=== PATIENT | female | born 1995 | race African-American/Black ===

== ENCOUNTER 2020-11-28 14:11 | Emergency (ER) | payer OTHER, SELFPAY ==
--- NOTE | ~2020-11-28 | XR_ITS ---
EXAMINATION: XR chest 2V 11/28/2020 15:07 INDICATION: Left-sided chest pain for 3 days PROCEDURE: 2 views of the chest COMPARISON: No prior studies for comparison. FINDINGS: The lungs are clear. The cardiomediastinal silhouette is within normal limits. There are no pleural effusions. There is no pneumothorax suspected. IMPRESSION: 1: NO ACUTE CARDIOPULMONARY DISEASE. Reviewed, dictated and finalized at location A. L APPLIANCE ASSEMBLY SUPERVISOR
--- NOTE | 2020-11-28 14:13 | ECG_ITS ---
Measurements Intervals [place] Rate: 85 P: 21 KS: 173 QRS: 44 QRSD: 89 T: 7 QT: 354 QTc: 423 Interpretive Statements SINUS RHYTHM BORDERLINE T WAVE ABNORMALITY- INFERIOR LEADS BORDERLINE ECG Electronically Signed On 11-28-2020 14:55:30 NURSING ASSISTANTS TEACHER by Salomon Rivera D.O.
[2020-11-28 14:17] VITALS: BP 126/90; PULSE 79; RESP 18; TEMP 36.3; O2SAT 100
[2020-11-28 14:46] LABS: Basophils Absolute Auto 0.1 K/mm3 (0.0-0.1); Eosinophils Absolute Auto 0.2 K/mm3 (0-0.3); Eosinophils Percent Auto 2.3 % (0-4.4); Hematocrit 42.5 % (37.0-47.0); Immature Granulocyte Absolute 0.02 K/mm3 (0.00-0.031); Immature Granulocyte Percent A 0.3 % (0-0.5); Mean Corpuscular HGB Conc 32.9 g/dl (32-36); Mean Corpuscular Hemoglobin 29.2 pg (26-34); Mean Corpuscular Volume 88.7 fl (80-100); Mean Platelet Volume 10.3 fl (7.4-10.4); Monocytes Absolute Auto 0.5 K/mm3 (0.1-0.6); Monocytes Percent Auto 7.5 % (2.6-8.5); Neutrophils Absolute Auto 3.3 K/mm3 (1.3-6.7); Neutrophils Percent Auto 47.9 % (45.5-73.1); Platelet Count Result 328 k/mm3 (150-375); Red Blood Count 4.79 M/mm3 (4.2-5.4); Red Cell Distribution Width 12.2 % (11.5-14.5); White Blood Count 6.8 K/mm3 (4.5-10.0)
[2020-11-28 14:55] LABS: Prothrombin Time 13.4 Seconds (11.1-14.7)
[2020-11-28 14:56] LABS: Partial Thromboplastin Time 29.4 SECONDS (22.3-36.8)
[2020-11-28 14:58] LABS: Anion Gap 6 mmol/L (8-16); Blood Urea Nitrogen 11 mg/dL (7-17); Calcium 9.6 mg/dL (8.4-10.2); Carbon Dioxide 30 mmol/L (22-30); Chloride 103 mmol/L (98-107); Estimated CRCL calculation 119 ml/min; Estimated Glomerular Filt Rate > 60; Glucose 99 mg/dL (65-105); Potassium 4.3 mmol/L (3.4-5.0); Sodium 139 mmol/L (137-145)
[2020-11-28 15:10] LABS: Troponin I < 0.012 ng/mL (0.000-0.034)
[2020-11-28] MEDS: ASPIRIN 81 MG CHEWABLE TABLET 324 MG PO (15:28)
[2020-11-28 15:29] VITALS: PULSE 75
[2020-11-28 15:44] LABS: D Dimer 0.59 ug/mL (<0.48)
[2020-11-28 16:31] VITALS: BP 117/83; PULSE 81; RESP 18; O2SAT 98
[2020-11-28 16:46] VITALS: BP 125/86; PULSE 74; RESP 13; O2SAT 98
[2020-11-28 17:16] VITALS: BP 117/81; PULSE 80; RESP 9; O2SAT 97
[2020-11-28 17:31] VITALS: BP 117/88; PULSE 83; RESP 16; O2SAT 98
--- NOTE | 2020-11-28 18:09 | PC.NURSE ---
Pt IV blew in CT. unable to proceed with CT at this time
[2020-11-28 18:19] LABS: Troponin I < 0.012 ng/mL (0.000-0.034)
--- NOTE | 2020-11-28 18:21 | PC.NURSE ---
Pt states she doesn't want to be stuck anymore and wants to go home
--- NOTE | 2020-11-28 21:32 | ED.GENADULT ---
HPI - General Adult General Chief complaint: Chest Pain Stated complaint: CHEST PAIN X3D Time Seen by Provider: 11/28/20 15:19 Source: patient Mode of arrival: ambulatory Limitations: no limitations History of Present Illness HPI narrative: Patient presents with chief complaint of sharp left-sided intermittent chest pain that began 3 days ago. Patient states that she also has headache, but was told by her nurse lace cutter that is normal as she has had changes in her control from pills to nuvaring to IUD. She states when she has the pain if she breathes in it feels worse. She denies fever, cough or calf pain. She states at times she has taken tylenol or ibuprofen and it has helped. She denies any prior PE, DVT, or WI. She denies any trauma. Related Data Home Medications Medication Instructions Recorded Confirmed etonogestrel-ethinyl estradiol vag ring VAGINAL 09/26/19 [NuvaRing] Allergies Allergy/AdvReac Type Severity Reaction Status Date / Time No Known Allergies Allergy Verified 11/28/20 14:33 Review of Systems Review of Systems: Narrative: CONSTITUTIONAL: Denies fever, chills, or sweats. EYES: Denies visual changes, redness, or discharge. ENT: Denies rhinorrhea, congestion, sore throat, or otalgia. CARDIOVASCULAR: Reports intermittent left-sided chest pain that is sharp denies palpitations, or edema. RESPIRATORY: Denies cough or dyspnea. GASTROINTESTINAL: Denies abdominal pain, nausea, vomiting, or diarrhea. GENITOURINARY: Denies dysuria or hematuria. SKIN: Denies rash or itching. MUSCULOSKELETAL: Denies calf pain denies back pain, joint pain, or myalgia. NEUROLOGIC: Denies headache, numbness, dizziness, or weakness. PSYCHIATRIC: Denies anxiety or depression. PMFSH Social History Social History Gender identity (if verbalized by the patient): Female Exam Narrative: Exam Narrative: GENERAL: Well-appearing, well-nourished, and in no acute distress. HEAD: Normocephalic, atraumatic. EYES: PERRLA and EOMI. NECK: Supple. No adenopathy or masses. CHEST: No tenderness with palpation of the chest wall. Clear to auscultation. No respiratory distress. No wheezes rales or rhonchi HEART: Regular rate and rhythm. ABDOMEN: Soft, nontender, nondistended, normal active bowel sounds. EXTREMITIES: Normal range of motion. No edema. SKIN: Warm, dry, no rash. NEURO: No focal deficits. Alert and oriented x3. PSYCH: Normal mood and affect. Course Vital Signs Vital signs: Vital Signs Temperature 97.4 F L 11/28/20 14:17 Pulse Rate 79 11/28/20 14:17 Respiratory Rate 18 11/28/20 14:17 Blood Pressure 126/90 11/28/20 14:17 Pulse Oximetry 100 11/28/20 14:17 Temperature 97.4 F L 11/28/20 14:17 Pulse Rate 83 11/28/20 17:31 Respiratory Rate 16 11/28/20 17:31 Blood Pressure 117/88 11/28/20 17:31 Pulse Oximetry 98 11/28/20 17:31 Medical Decision Making MDM Narrative Medical decision making narrative: Patient has had multiple lines below and has had to be stuck multiple times. While she was attempting to have a CTA performed her line blew and she states that she does not want any additional IVs attempted. Patient states she does not have chest pain at this time. Patient denies being short of breath. Patient not have calf pain or tenderness. Patient states that she wants to be discharged home immediately. Patient has been instructed to return to emergency department immediately if she has any emergent symptoms. Differential Diagnosis Differential Diagnosis: Pleurisy, pneumonia, WI, PE Vital Signs Vital Signs: Vital Signs Temperature 97.4 F L 11/28/20 14:17 Pulse Rate 79 11/28/20 14:17 Respiratory Rate 18 11/28/20 14:17 Blood Pressure 126/90 11/28/20 14:17 Pulse Oximetry 100 11/28/20 14:17 Temperature 97.4 F L 11/28/20 14:17 Pulse Rate 83 11/28/20 17:31 Respiratory Rate 16 11/28/20 17:31 Blood Pressure 117/88 11/28/20 17:31 Pulse Oximetry 98 02
== END 2020-11-28 18:41 | disposition home or self-care (01) ==
PROVIDERS: Emergency Medicine; Physician Assistant; Emergency Provider Emergency Medicine; PCP Emergency Medicine
DX: R07.89 Other chest pain (principal); R94.31 Abnormal electrocardiogram [ECG] [EKG]
CPT/HCPCS: 36415; 71046; 80048; 81025; 84484; 85025; 85380; 85610; 85730; 93005; 99284; A9270

== ENCOUNTER 2020-12-03 15:15 | Outpatient (CLI) | payer OTHER, SELFPAY ==
--- NOTE | ~2020-12-03 | US_ITS ---
US breast BI complete DATE: 12/03/2020 16:14 INDICATION: Multiple bilateral breast masses; history of prior benign breast biopsy TECHNIQUE: Real-time imaging and color flow imaging of both breasts COMPARISON: 01/04/2018 bilateral complete breast ultrasound FINDINGS: There are numerous solid masses of variable size involving both breasts. 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 However, there is a 7.1 x 6.6 x 4.7 mm hypoechoic solid lesion in the right breast at 12:00 4 cm from the nipple that has anti-parallel configuration, mildly shaggy margins, posterior shadowing and alberto cent vascularity, for which ultrasound-guided biopsy is recommended. There is a large hypoechoic mass in the left breast at 11:00 7 cm from the nipple, measuring 2.1 x 1. 9 x 2.1 cm dimension, with internal vascularity and with posterior shadowing. Ultrasound-guided biops y is recommended. Left breast 10:00 5 cm from nipple: 3.5 x 3.1 cm heterogeneous hypoechoic solid mass with internal va scularity and posterior shadowing. Ultrasound-guided biopsy is recommended. IMPRESSION: BI-RADS Category 4: Suspicious abnormalities; ultrasound-guided biopsy is recommended for the following 3 lesions with posterior shadowing and internal or adjacent vascularity: 1. Right breast 12:00 4 cm from nipple 2. Left breast 11:00 7 cm from nipple 3. Left breast 10:00 5 cm from nipple Reviewed, dictated and finalized at Location A. Dr. Mclaughlin telephoned the report and ultrasound guided biopsy recommendations on 12/03/2020 at [address] Chawla. Reviewed, dictated and finalized at location A. DCAST CHECKER IMPRESSION: BI-RADS Category 4: Suspicious abnormalities; ultrasound-guided bio psy is recommended for the following 3 lesions with posterior shadowing and int ernal or adjacent vascularity: 1. Right breast 12:00 4 cm from nipple 2. Left breast 11:00 7 cm from nipple 3. Left breast 10:00 5 cm from nipple
== END 2020-12-03 15:16 | disposition home or self-care (01) ==
PROVIDERS: PCP Emergency Medicine; Visit Provider Emergency Medicine
DX: N63.20 Unspecified lump in the left breast, unspecified quadrant (principal); R92.8 Other abnormal and inconclusive findings on diagnostic imaging of breast
CPT/HCPCS: 76641

== ENCOUNTER 2020-12-04 13:09 | Outpatient (CLI) | payer OTHER, SELFPAY ==
--- NOTE | ~2020-12-04 | US_ITS ---
CORRECTED REPORT ORDER DESCRIPTION CHANGE [facility] [place] EXAMINATION: US BREAST BIOPSY LT W image, US BREAST BX ADD LESION LT, US BREAST BX ADD LESION RT DATE: 12/04/2020 14:30 SCREENING UNIT REGISTERED NURSE INDICATION: Ultrasound demonstrated bilateral breast masses on the right at 12:00 and on the left at 10:00 and 11:00. TECHNIQUE AND FINDINGS: The risks and potential benefits of the procedure were discussed with the patient, and written informed consent was obtained. Timeout procedure was performed. After sterile preparation of both breasts, 1% lidocaine was utilized for local anesthesia. A 14G spring-loaded biopsy gun needle was advanced to the edge of the 12:00 right breast lesion from a medial approach utilizing sonographic guidance. A total of three tissue core samples were obtained through the lesion. An Inrad tissue marker clip was then placed at the biopsy site. Hemostasis was achieved. A sterile bandage was applied. A 14-gauge spring-loaded biopsy gun needle was advanced to the left 10:00 breast lesion from a superolateral approach, yielding 3 biopsy specimens. A tissue marker clip was placed. A 14-gauge spring-loaded biopsy gun needle was then advanced through the same incision site for the 10:00 lesion, directed superolaterally to the 11:00 lesion, yielding 3 biopsy specimens. A tissue marker clip was placed. The patient tolerated procedure well and there was no evidence of immediate complication. The patient was given verbal instructions prior to departing from the department. A two view mammogram was performed to document tissue marker clip placement. The tissue samples were submitted to surgical pathology for histologic analysis. IMPRESSION: 1. Successful ultrasound guided biopsy of right 12:00 breast mass and left 10:00 and 11:00 masses with biopsy marker placement at each. Please refer to pathology report for histologic analysis. Reviewed, dictated and finalized at Location [facility]. Reviewed, dictated and finalized at location A. ENING UNIT REGISTERED NURSE MTDD IMPRESSION: 1. Successful ultrasound guided biopsy of right 12:00 breast mass and left 10: 00 and 11:00 masses with biopsy marker placement at each. Please refer to patho logy report for histologic analysis.
--- NOTE | ~2020-12-04 | US_ITS ---
Please refer to December 04, 2020 bilateral ultrasound-guided breast biopsy report, which includes an account of the left 10:00 11:00 ultrasound-guided breast biopsies. Reviewed, dictated and finalized at location A. R SERVICES TECHNICIAN
--- NOTE | ~2020-12-04 | MM_ITS ---
MM post biopsy invasive BI DATE: 12/04/2020 14:54 INDICATION: Post ultrasound guided biopsy mammogram TECHNIQUE: Digital ML and CC views COMPARISON: None FINDINGS: Right mammogram: There are 2 cortical biopsy markers in the upper outer right breast, one placed today. A biopsy marker is present within 2 larger masses in the upper mid and upper inner left breast. IMPRESSION: Status post bilateral ultrasound-guided biopsies Reviewed, dictated and finalized at Location [facility]. Reviewed, dictated and finalized at location A. ESSIONAL NURSING ASSISTANT
--- NOTE | ~2020-12-04 | US_ITS ---
US breast bx add lesion LT DATE: 12/04/2020 14:30 Please refer to 12/04/2020 left breast biopsy report. Reviewed, dictated and finalized at Location [facility]. Reviewed, dictated and finalized at location A. K ROLLER
== END 2020-12-04 13:10 | disposition home or self-care (01) ==
LOC: ANHIMG 13:14
PROVIDERS: PCP Emergency Medicine; Visit Provider Emergency Medicine
DX: R92.8 Other abnormal and inconclusive findings on diagnostic imaging of breast (principal); N63.22 Unspecified lump in the left breast, upper inner quadrant; D24.1 Benign neoplasm of right breast; D24.2 Benign neoplasm of left breast; N60.32 Fibrosclerosis of left breast; N60.22 Fibroadenosis of left breast; N63.10 Unspecified lump in the right breast, unspecified quadrant
CPT/HCPCS: 19083; 19084; 88305; A4648

== ENCOUNTER → 2022-05-21 03:00 | Outpatient (CLI) | payer OTHER, SELFPAY ==
[2022-05-21 11:24] LABS: SARS-CoV-2 RNA PCR Positive
== END ==
PROVIDERS: PCP Emergency Medicine; Visit Provider Emergency Medicine
DX: U07.1 COVID-19 (principal); R05.9 Cough, unspecified
CPT/HCPCS: C9803; U0003; U0005

== ENCOUNTER 2023-05-17 00:21 | Day surgery (SDC) | payer OTHER, SELFPAY ==
[2023-05-06 10:22] VITALS: BMI 34.0
--- NOTE | 2023-05-06 10:27 | PC.NURSE ---
Report to the Outpatient Waiting Room, entrance under the green pavilion located off [facility], at time 0900 on date 05/17/23. Planned Procedure Time: 1100. Time changes happen often and if your time is changed the preop area will call you the afternoon before. - You and your visitor will be asked to self-screen and do not enter if you have any COVID symptoms. - A mask is optional within the hospital at this time. Patients may have clear liquids (water, carbonated beverages, clear teas, apple juice) until 3 hours prior to surgery with a maximum of 20 ounces. - No food from midnight until time of surgery Take the following medications with a SIP of water the morning of surgery: ANTIBIOTIC (IF STILL TAKING) DO NOT STOP ANY OF YOUR OTHER PRESCRIPTION MEDICATIONS PRIOR TO SURGERY ?EXCEPT THE FOLLOWING Medications to discontinue per physician: VITAMINS/SUPPLEMENTS Date to take last dose: 05/13/23 Please no make-up, nail setswana, hairspray, perfume, deodorant, or body powder the day of surgery. No jewelry (including any body piercings) or valuables the day of surgery, leave them at home. Please take a shower or bath the night before, or the morning of, surgery with an antibacterial soap. Wear comfortable, loose fitting clothing. - Jewelry must be removed prior to entering the operating room. Rings and piercings that are not removed may be cut off. - The hospital will not accept responsibility for valuables. - Please leave all valuables, including medications, at home the day of surgery. If you are going home after surgery, a licensed dump truck driver must drive you home. - NO public transportation without another adult if you receive anesthesia. - We recommend that an adult stay with you for 24 hours following discharge. - We also recommend that you do not drive, make important decision, drink alcoholic beverages, or take any drugs that were not prescribed by your health care provider for at least 24 hours after your discharge time. Follow any additional instructions given to you from your surgeon. If you or anyone in your household have experienced Covid symptoms in the past week, please notify your surgeon or the nurse liaison at the phone number below for possible testing. Telephone instructions given to PT - JACOB WHALEY and asked if any additional questions and then verbalized understanding. Patient advised to call surgeon office or pre surgery nurse liaison [phone] if any additional questions.
--- NOTE | 2023-05-17 07:50 | P.PNAN_ITS ---
Anes - Initial Pre Proc Eval Procedure: Operation Date: 05/17/23 11:00 Proposed Procedures p Loop Electrical Excision Procedure - Anna Jessica MD Date/Time: 05/17/23 07:50 Surgeon: Anna Jessica MD Pre Op Diagnosis: dysplasia of cervix Patient Data Age: 27 Gender: F Height: 1.75 m Weight: 104.35 kg Allergies Allergy/AdvReac Type Severity Reaction Status Date / Time No Known Allergies Allergy Verified 05/06/23 10:20 Home Medications Medication Instructions Recorded Confirmed Type etonogestrel 0.12 mg-ethinyl 1 vag ring vaginal ONCE 09/26/19 05/06/23 History estradiol 0.015 mg/24 hr vaginal ring (NuvaRing) amoxicillin 875 mg tablet 875 mg PO BID 05/06/23 05/06/23 History mv-min-vit C 250 tn-qoprlw-ctdqa 1 tablet PO DAILY 05/06/23 05/06/23 History HCl-herb 124 12.5 mg chewable tablet (Immune Support) Patient hx anesthesia problems: none Family hx anesthesia problems: none Results Review: All pre-operative results and documents have been reviewed as part of the pre- operative evaluation. [facility] Past Medical History Medical History (Updated 05/17/23 @ 07:50 by Aubrey Vargas DO) Anxiety Surgical History Surgical History (Updated 05/17/23 @ 07:50 by Aubrey Vargas DO) History of tonsillectomy Social History Social History Smoking status: Former smoker Tobacco type: cigars Smoking end date: 10/24/19 Alcohol intake: current Drinks per week: 3 Substance use: never Substance use type: does not use Living arrangements: with family Gender identity (if verbalized by the patient): Female Spiritual care concerns: No Anes - Eval Final PreProcedure Day of Procedure 05/17/23 07:50 Patient weight: obese Heart: regular rate and rhythm Lungs: clear to auscultation Airway: Mallampati scale class II Neurological: alert and oriented Last oral intake: >/= 8 hours ASA classification: II Emergent: no Anesthetic plan: proceed Anesthesia type and monitoring: general GIVS and standard monitoring Results Review: All pre-operative results and documents have been reviewed as part of the pre-operative evaluation. Informed Consent: The patient's anesthetic plan and its attendant risks and benefits were discussed with the patient/family/POA. Questions were solicited and answers provided to the satisfaction of the patient/family/POA.
[2023-05-17 09:30] VITALS: BP 121/86; PULSE 85; RESP 16; TEMP 36.7; O2SAT 100
[2023-05-17] MEDS: LACTATED RINGERS 1,000 ML 30 ML IV CONT (09:30)
[2023-05-17] MEDS: ACETAMINOPHEN 500 MG TABLET 1000 MG PO (10:12)
--- NOTE | 2023-05-17 10:26 | WPDHPUPDATE1 ---
History and Physical Update Update Date/Time: 05/17/23 10:26 History and Physical has been reviewed, including an updated exam of the patient. There are NO changes in the patient's condition. Risks, benefits, and alternatives have been discussed and questions answered. Patient agrees to proceed with procedure.
[2023-05-17] MEDS: LIDO 1%/EPINEPHRINE 1:100,000 50 ML VIAL INFILTRATE (10:48)
--- NOTE | 2023-05-17 11:10 | W.PM.PROC2 ---
Procedure Note - Detailed Date of Procedure 05/17/23 Pre-op Diagnosis dysplasia of cervix Post-op Diagnosis Same Procedure Performed LEEP Surgeon Anna Jessica MD Anesthesia MAC Indications Cervical cancer prevention Findings normal appearing cervix, grossly Description of Procedure the patient was taken to the operating room. She was prepped and draped in the dorsal lithotomy position after induction of MAC anesthesia. A coated speculum was placed in the vagina. The cervix was injected at 3 and 9:00 a.m. with lidocaine. A electrode loop was used to excise the central portion of the cervix in 1 motion. This was from 9:00 to 3:00. After excision of that tissue the cut surface was cauterized with ball cautery. The Monsel solution was applied to the cut surfaces well. The speculum was removed. The patient tolerated the procedure well. She was seeing cover stable condition. Estimated Blood Loss -5.0 Packing No Pathology Yes Complications No immediate complications Condition Stable Disposition Same day
[2023-05-17 11:12] VITALS: BP 125/83; PULSE 93; RESP 14; O2SAT 99
[2023-05-17 11:45] VITALS: BP 122/82; PULSE 76; RESP 16
== END 2023-05-17 12:14 | disposition home or self-care (01) ==
PROVIDERS: PCP Emergency Medicine; Visit Provider Obstetrics & Gynecology
PROC: 0UBC7ZZ Excision of Cervix, Via Natural or Artificial Opening (ICD-10-PCS; CPT 57522; principal; 2023-05-17 11:00)
DX: N87.1 Moderate cervical dysplasia (principal); Z87.891 Personal history of nicotine dependence; E66.9 Obesity, unspecified; Z68.33 Body mass index [BMI] 33.0-33.9, adult
CPT/HCPCS: 57522; 88307; 88342; A9270; J1100; J2250; J2405; J2704; J3010; J7120